=== PATIENT | female | born 1995 ===

== ENCOUNTER 2017-07-29 16:57 | Emergency (ER) ==
[~2017-07-29] VITALS: Ht 162.6 cm; Wt 71.0 kg
[2017-07-29] MEDS ORDERED: ONDANSETRON 4MG OD TAB PO STA (17:01)
[2017-07-29 17:10] VITALS: TEMP 37; Ht 162.6 cm; Wt 71.0 kg
--- NOTE | 2017-07-29 17:12 | EMERGENCY ROOM VISIT NOTE ---
History Report prepared by Lex: Pete Caban Under the Supervision of: Dr. Juvenal Lee M.D. First contact with patient: 16:59 Chief Complaint: ALCOHOL OVERDOSE Stated Complaint: ETOH History of Present Illness The patient is a 22 year old female who presents to the Emergency Room via EMS with complaints of alcohol intoxication. 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 She began to have episodes of nausea with vomiting, so she called the police to pick her up so she could come to the hospital. Per EMS, her glucose was 109. She denies any other physical symptoms. She denies any medical history or drug abuse. Source of History: patient, EMS Onset: recently Position: other (Global) Symptom Intensity: moderate Quality: other (ETOH intoxication) Timing: constant Associated Symptoms: + nausea, + vomiting Note: She denies any other physical symptoms. Review of Systems See HPI for pertinent positives & negatives. A total of 10 systems reviewed and were otherwise negative. Past Medical & Surgical Medical Problems: (1) No Known Active Medical Problems Family History Patient reports no known family medical history. Social History Smoking Status: Never Smoker Smokeless Tobacco Use: No Alcohol Use: occasionally Drug Use: none Marital Status: single Housing Status: lives with roommate Occupation Status: student Current/Historical Medications Scheduled Control Pills ( Control Pills), 1 TAB PO DAILY Allergies Coded Allergies: No Known Allergies (Unverified , 07/29/17) Physical Exam Vital Signs Date Time Temp Pulse Resp B/P (MAP) Pulse Ox O2 Delivery O2 Flow Rate FiO2 07/29/17 19:00 83 16 122/68 98 Room Air 07/29/17 18:13 52 16 109/62 96 Room Air 07/29/17 17:49 54 07/29/17 17:10 37.0 85 16 131/76 98 Room Air Physical Exam GENERAL: Patient is actively vomiting, but in no acute distress. HEENT: No acute trauma, normocephalic atraumatic, mucous membranes moist, no nasal congestion, no scleral icterus. NECK: No stridor, no adenopathy, no meningismus, trachea is midline. LUNGS: Clear to auscultation bilaterally, no wheeze, no rhonchi, breath sounds equal. HEART: Without murmurs gallops or rubs, regular rate and rhythm. ABDOMEN: Soft, nontender, bowel sounds positive, no hernias, no peritonitis. EXTREMITIES: No cyanosis or edema, full range of motion of all the joints without pain or difficulty, no signs for acute trauma. NEUROLOGIC: Oriented x 3, no acute motor or sensory deficits, no focal weakness. SKIN: No rash, no jaundice, no diaphoresis. Medical Decision & Procedures Laboratory Results 07/29/17 17:40 Test 07/29/17 17:40 Anion Gap 10.0 mmol/L (3-11) Est Creatinine Clear Calc Drug Dose 92.3 ml/min Estimated GFR () 101.2 Estimated GFR (Non- 87.3 BUN/Creatinine Ratio 4.6 (10-20) Calcium Level 9.6 mg/dl (8.5-10.1) Human Chorionic Gonadotropin, Qual NEG (NEG) Ethyl Alcohol mg/dL 171.4 mg/dl (0-3) Laboratory results reviewed by me. Medications Administered Medications (Trade) Dose Ordered Sig/Denita Route Start Time Stop Time Status Last Admin Dose Admin Ondansetron HCl (Zofran Odt) 8 mg NOW STAT PO 07/29/17 17:01 07/29/17 17:03 DC 07/29/17 17:11 8 MG ED Course 1659: The patient was evaluated in room B11A. A complete history and physical exam was performed. 170: Ordered Ondansetron HCl 8 mg PO 1941: I reevaluated the patient at this time. She is on the phone talking to her friends and family. No one is available to pick her up at this time. Medical Decision Differential diagnosis includes but is not limited to alcohol or drug abuse, alcohol overdose, dehydration, trauma, electrolyte imbalance, or . The patient presents vomiting and was stating that she had had too much alcohol to drink. Alcohol level is 171 consistent with alcohol abuse. No significant electrolyte abnormality or kidney failure. testing was negative. There was no reported trauma, I found no evidence for trauma on exam. The patient received oral Zofran, this controlled her nausea. She was watched here for several hours. The patient is now more sober, she is not slurring her words, she is not vomiting. She is talking on the phone. She is drinking oral fluids. The patient is attempting to contact friends for a ride home however, she at this point is unable to get someone who can come to the hospital and give her a ride. She will continue to work on this. Nursing staff is involved as well. If she becomes sober enough, I do think a ride home via taxi would be reasonable. Her presentation is consistent with alcohol overdose/abuse. Medication Reconcilliation Current Medication List: was personally reviewed by me Blood Pressure Screening Patient's blood pressure: Normal blood pressure Blood pressure disposition: Did not require urgent referral Impression Primary Impression: Alcohol overdose Additional Impression: Vomiting Scribe Attestation The scribe's documentation has been prepared under my direction and personally reviewed by me in its entirety. I confirm that the note above accurately reflects all work, treatment, procedures, and medical decision making performed by me. Departure Information Dispostion Still a Patient Forms HOME CARE DOCUMENTATION FORM, IMPORTANT VISIT INFORMATION Patient Instructions My [facility], [facility]: [employer] Students and Alcohol Related Visits Additional Instructions rest fluids no more alcohol this weekend stay with friends or family alcohol level today was 171, over 2x the legal limit to drive Problem Qualifiers Primary Impression: Alcohol overdose Encounter type: initial encounter Injury intent: accidental or unintentional Qualified Codes: T51.91XA - Toxic effect of unspecified alcohol , accidental (unintentional), initial encounter Additional Impression: Vomiting Vomiting type: unspecified Vomiting Intractability: non-intractable Nausea presence: with nausea Qualified Codes: R11.2 - Nausea with vomiting, unspecified
[2017-07-29] MEDS ORDERED: BCPILLS PO (17:19)
[2017-07-29 18:11] LABS: BUN/CREATININE RATIO 4.6 (10-20); CALCIUM 9.6 mg/dl (8.5-10.1); CREATININE 0.94 mg/dl (0.60-1.20)
[2017-07-29 18:26] LABS: PREG INTERNAL NEGATIVE QC NEG CLEAR BACKGROUND; PREG INTERNAL POSITIVE QC POS CONTROL LINE
[2017-07-29 22:00] VITALS: BP 120/64; PULSE 76; O2SAT 96
== END 2017-07-29 21:50 | disposition home or self-care (01) ==
LOC: EDBD 16:57 → C.EDB 16:59
DX: T51.91XA Toxic effect of unspecified alcohol, accidental (unintentional), initial encounter (principal); R11.10 Vomiting, unspecified